=== PATIENT | male | born 1980 | race Caucasian/White ===

== ENCOUNTER → 2020-10-23 | Day surgery (SDC) | payer BC ==
[2020-10-18 11:19] VITALS: BMI 27.0
[~2020-10-23] MED LIST: LACTATED RINGERS 1,000 ML IV SCH; LIDOCAINE 1% INJ 10MG/ML (20 ML MDV) ONE; MIDAZOLAM 2 MG/2 ML VIAL ONE; PROPOFOL 10 MG/ML 20 ML VIAL IV ONE; fentaNYL (PF) 50 MCG/ML 2 ML AMP ONE
--- NOTE | 2020-10-23 08:58 | P.GSHP ---
History of Present Illness H&P Date: 10/23/20 CHIEF COMPLAINT: Colon screen HISTORY OF PRESENT ILLNESS: The patient is a 40-year-old male who presents for colon screen. Lower endoscopy was offered for further evaluation and management. PAST MEDICAL HISTORY: Please see list. PAST SURGICAL HISTORY: Please see list. MEDICATIONS: Please see list. ALLERGIES: Please see list. SOCIAL HISTORY: No illicit drug use FAMILY HISTORY: No reports of Crohn disease or ulcerative colitis. REVIEW OF ORGAN SYSTEMS: CONSTITUTIONAL: No reports of fevers or chills. PHYSICAL EXAM: VITAL SIGNS: Stable GENERAL: Well-developed pleasant in no acute distress. HEENT: No scleral icterus. Extraocular movements grossly intact. Moist buccal mucosa. NECK: Supple without lymphadenopathy. CHEST: Unlabored respirations. Equal bilateral excursions. CARDIOVASCULAR: Regular rate and rhythm. Distal 2+ pulses. ABDOMEN: Soft, nontender, nondistended. MUSCULOSKELETAL: No clubbing, cyanosis, or edema. ASSESSMENT: 1. Colon screen. PLAN: 1. 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 corrective jaw surgery Past Anesthesia/Blood Transfusion Reactions: No Reported Reaction Smoking Status: Former smoker - Past Family History Mother Family Medical History: Cancer Additional Family Medical History / Comment(s): BREAST CANCER Father Family Medical History: Cancer Additional Family Medical History / Comment(s): BLADDER & BRAIN CANCER. FAMILY HX OF COLON CANCER. Brother(s) Family Medical History: Cancer Additional Family Medical History / Comment(s): PROSTATE CANCER Medications and Allergies Home Medications Medication Instructions Recorded Confirmed Type Aspirin 325 mg PO DAILY 10/18/20 10/18/20 History Glucosam/Andrew-Msm1/C/Trell/Bosw 1 each PO DAILY 10/18/20 10/18/20 History [Glucosamine-Chondroitin Tablet] Metamucil(Dose Unknown) 1 applicate PO DAILY 10/18/20 10/18/20 History Multivitamins, Thera [Multivitamin 1 tab PO DAILY 10/18/20 10/18/20 History (formulary)] Saw [place](Dose Unknown) 1 tab PO DAILY 10/18/20 10/18/20 History Allergies Allergy/AdvReac Type Severity Reaction Status Date / Time No Known Allergies Allergy Verified 10/18/20 11:10
[2020-10-23 10:28] VITALS: RESP 16; TEMP 97.6
--- NOTE | 2020-10-23 11:30 | P.PCN ---
Date of Procedure: 10/23/20 Description of Procedure: PREOPERATIVE DIAGNOSIS: High-risk family history, colon cancer, brother, father, grandmother History of polyps POSTOPERATIVE DIAGNOSIS: High-risk family history, colon cancer, brother, father, grandmother History of polyps Diverticulosis, scattered. OPERATION: Colonoscopy to the cecum, ileocecal valve and appendiceal orifice. SURGEON: Johanne Santizo MD. ANESTHESIA: MAC. INDICATIONS: The patient is a 40-year-old male who presents for colonoscopy screening. Last colonoscopy 3 years ago. Benefits and risks were described and informed consent was obtained. DESCRIPTION OF PROCEDURE: The patient had undergone Gatorade, MiraLAX and Dulcolax prep. He had been brought into the operating room and laid in the left lateral decubitus position. After adequate intravenous sedation, the rectum was examined with 2% lidocaine jelly. No external hemorrhoids were encountered. The rectal tone was within normal limits. No lesions were palpated in the rectal vault. An Olympus colonoscope was advanced until the cecum, ileocecal valve and appendiceal orifice were clearly viewed. The prep was fair. Scattered diverticulosis was encountered. No colonic polyps were found. No evidence of focal colitis was found. Retroflexion of the scope demonstrated grade 1 internal hemorrhoids without active bleeding or inflammation. The colon was desufflated. The patient had tolerated the procedure well. Withdrawal time was over 6 minutes. FINDINGS: Aronchick preparation quality scale (1-5) Internal hemorrhoids, grade 3 No external prolapsed hemorrhoids. No arteriovenous malformations. No adenomatous polyps. No focal colitis. RECOMMENDATIONS: Lower endoscopy in 3 years, 2022 Plan - Discharge Summary New Discharge Prescriptions: Continue Multivitamins, Thera [Multivitamin (formulary)] 1 tab PO DAILY Aspirin 325 mg PO DAILY Glucosam/Andrew-Msm1/C/Trell/Bosw [Glucosamine-Chondroitin Tablet] 1 each PO DAILY Saw [place](Dose Unknown) 1 tab PO DAILY Metamucil(Dose Unknown) 1 applicate PO DAILY Discharge Medication List Aspirin 325 mg PO DAILY 10/18/20 [History] Glucosam/Andrew-Msm1/C/Trell/Bosw [Glucosamine-Chondroitin Tablet] 1 each PO DAILY 10/18/20 [History] Metamucil(Dose Unknown) 1 applicate PO DAILY 10/18/20 [History] Multivitamins, Thera [Multivitamin (formulary)] 1 tab PO DAILY 10/18/20 [History] Saw [place](Dose Unknown) 1 tab PO DAILY 10/18/20 [History] Follow up Appointment(s)/Referral(s): Johanne Santizo MD [STAFF PHYSICIAN] - As Needed Patient Instructions/Handouts: Diverticulosis Diet (GEN), Diverticulosis (GEN) Activity/Diet/Wound Care/Special Instructions: Repeat colonoscopy in 3 years, 2022 Discharge Disposition: HOME SELF-CARE
[2020-10-23 12:00] VITALS: BP 114/74; PULSE 50
== END | disposition home or self-care (01) ==
LOC: ORWHC2ENDO 10:14
PROVIDERS: ATTEND Surgery Plastic and Reconstructive Surgery
DX: Z12.11 Encounter for screening for malignant neoplasm of colon (principal); K57.30 Diverticulosis of large intestine without perforation or abscess without bleeding; K64.0 First degree hemorrhoids; Z86.010 Personal history of colon polyps; Z79.82 Long term (current) use of aspirin; Z79.899 Other long term (current) drug therapy; G47.33 Obstructive sleep apnea (adult) (pediatric); Z99.89 Dependence on other enabling machines and devices; Z87.891 Personal history of nicotine dependence; Z80.0 Family history of malignant neoplasm of digestive organs; Z80.3 Family history of malignant neoplasm of breast; Z80.52 Family history of malignant neoplasm of bladder; Z80.8 Family history of malignant neoplasm of other organs or systems; Z80.42 Family history of malignant neoplasm of prostate
CPT/HCPCS: J2250; J2001; J3010; J2704; G0105